=== PATIENT | male | born 1945 | race Caucasian/White ===

== ENCOUNTER 2019-07-09 20:48 | Emergency (ER) | payer OTHER ==
[~2019-07-09] VITALS: Ht 177.8 cm; Wt 63.5 kg
--- NOTE | 2019-07-09 20:48 | NUR ---
PT LETTY ALS TO ER BED 11
[2019-07-09 20:50] VITALS: BP 163/103
--- NOTE | 2019-07-09 20:50 | NUR ---
73 YO MALE BIB EMS FOR S/P FALL. PT HAS R POSTERIOR REDNESS/BUMP. DENIES LOC/VISUAL CHANGES. PT AMB WITH SHAKY GAIT. TRANSFERRED FROM EMS RDUFFIELD TO BEDSIDE RDUFFIELD WITH MAX ASSIST. GEN WEAKNESS NOTED. GURNEY LOCKED IN LOWEST POSITION. WILL UPDATE ERMD. BS-151 DENIES MED HX PT TAKES ASA 325 TID DENIES ALLERGIES
--- NOTE | 2019-07-09 21:30 | NUR ---
PT TO CT SCAN VIA [facility]
--- NOTE | 2019-07-09 21:46 | NUR ---
PT RETURNED FROM CT AT THIS TIME
[2019-07-09 23:41] VITALS: BP 153/82
--- NOTE | 2019-07-09 23:48 | NUR ---
Patient discharged with v/s stable. Written and verbal after care instructions given and explained BY DR ROBLES. Patient alert, oriented and verbalized understanding of instructions. Ambulatory with steady gait. All questions addressed prior to discharge BY DR ROBLES. ID band removed. Patient advised to follow up with PMD. Rx of NAPROSYN given. Patient educated on indication of medication including possible reaction and side effects. Opportunity to ask questions provided and answered BY DR ROBLES.
--- NOTE | 2019-07-09 23:48 | NUR ---
[facility] CALLED FOR PT
== END 2019-07-09 23:48 | disposition home or self-care (01) ==
LOC: MED 20:48
DX: S09.90XA Unspecified injury of head, initial encounter (principal); W18.39XA Other fall on same level, initial encounter; Y93.89 Activity, other specified; Y92.89 Other specified places as the place of occurrence of the external cause; Y99.8 Other external cause status
CPT/HCPCS: 70450; 99284

== ENCOUNTER 2019-09-25 11:03 | Inpatient (IN) | payer OTHER ==
[~2019-09-25] VITALS: Ht 177.8 cm; Wt 83.0 kg
--- NOTE | 2019-09-25 11:06 | NUR ---
PT BIBA TO ER BED 08
[2019-09-25 11:07] VITALS: BP 146/83
--- NOTE | 2019-09-25 11:16 | NUR ---
PATIENT BIBA FROM TRAILER DUE TO DIZZINESS. ACCORDING TO THE PT, HE FELT TIRED AND DIZZY AND RESTED ON THE FLOOR. NO INJURIES NOTED. DENIES N/V/D; PATIENT IS GCS 15, AAOX4; LUNGS CLEAR BL; HR EVEN AND REGULAR; PT DENIES ANY FEVER, CP, SOB, OR COUGH AT THIS TIME; PATIENT STATES PAIN OF 0/10 AT THIS TIME; VSS; PATIENT POSITIONED FOR COMFORT; HOB ELEVATED; BEDRAILS UP X2; BED DOWN. ER MD MADE AWARE OF PT STATUS. ALLERGIES: NONE PMH: NONE MEDS: VITAMINS
[2019-09-25 11:18] VITALS: BP 146/83
[2019-09-25] MEDS ORDERED: hydrOXYzine HCL 25 MG TAB PO ONE (11:35)
[2019-09-25] MEDS ORDERED: ONDANSETRON 4 MG/2 ML VIAL IVP ONE (11:35)
[2019-09-25] MEDS ORDERED: MECLIZINE 25 MG TAB PO ONE (11:35)
[2019-09-25] MEDS ORDERED: FAMOTIDINE 20 MG/2 ML VIAL IVP ONE (11:35)
--- NOTE | 2019-09-25 12:15 | NUR ---
XRAY AT BEDSIDE
[2019-09-25 12:22] LABS: BASOPHILS # (AUTO) 0.1 K/uL (0.00-0.22); BASOPHILS % (AUTO) 1.2 % (0.0-2.0); EOSINOPHILS # (AUTO) 0.1 K/uL (0-0.4); EOSINOPHILS % (AUTO) 0.6 % (0.0-4.0); HEMATOCRIT 42.7 % (36-52); HEMOGLOBIN 14.1 g/dL (12.0-18.0); LYMPHOCYTES # (AUTO) 0.6 K/uL (2.0-11.5); LYMPHOCYTES % (AUTO) 6.5 % (20.5-51.1); MEAN CORPUSCULAR HEMOGLOBIN 30 pg (27-31); MEAN CORPUSCULAR HGB CONC 33 g/dL (33-37); MEAN CORPUSCULAR VOLUME 91.8 fL (80-94); MONOCYTES # (AUTO) 0.5 K/uL (0.8-1.0); MONOCYTES % (AUTO) 5.8 % (1.7-9.3); NEUTROPHILS # (AUTO) 7.6 K/uL (1.8-7.7); NEUTROPHILS % (AUTO) 85.9 % (42.2-75.2); PLATELET COUNT (AUTO) 366 K/uL (140-450); RED BLOOD CELL COUNT(AUTO) 4.65 MIL/uL (4.20-6.10); RED CELL DISTRIBUTION WIDTH 13.8 % (11.6-13.7); WHITE BLOOD COUNT (AUTO) 8.9 K/uL (4.8-10.8)
[2019-09-25 12:31] LABS: ANION GAP 11.7 (8-16); CHLORIDE 101 mmol/L (98-107); CREATININE 1.3 mg/dL (0.7-1.3); GLUCOSE 327 mg/dL (74-106); POTASSIUM 4.7 mmol/L (3.5-5.1); SODIUM SERUM 138 mmol/L (136-145); UREA NITROGEN, BLOOD 22 mg/dL (7-18)
[2019-09-25 12:38] LABS: ALBUMIN 3.1 g/dL (3.4-5.0); ASPARTATE AMINOTRANSFERASE 14 U/L (15-37); MAGNESIUM 1.9 mg/dL (1.8-2.4); TOTAL BILIRUBIN 0.4 mg/dL (0.0-1.0); URIC ACID 4.7 mg/dL (2.6-7.2)
--- NOTE | 2019-09-25 12:40 | NUR ---
PATIENT WHEELED TO CT
[2019-09-25 12:58] LABS: ACETONE, SERUM NEGATIVE (NEGATIVE)
--- NOTE | 2019-09-25 13:00 | NUR ---
PT TAKEN TO MED SURG TO SHOW---FECAL INCONTINENCE ASIYA LAWTON AND BRAEDEN LAWTON WITH PT----
--- NOTE | 2019-09-25 13:09 | NUR ---
ASIYA LAWTON AND BRAEDEN LAWTON RELIEVED BY RAJI LAWTON AND LIZ HUNT
[2019-09-25] MEDS ORDERED: NACL 0.9% 2,000 ML IV SCH (13:43)
[2019-09-25] MEDS ORDERED: PIPERACILLIN/TAZOBACTAM 3.375 GM in DEXTROSE 5% 50 ML IV ONE (13:45)
[2019-09-25] MEDS ORDERED: ONDANSETRON 4 MG/2 ML VIAL IM/IVP PRN (13:45)
[2019-09-25] MEDS ORDERED: MORPHINE SULFATE 2 MG/ML SYR IVP PRN (13:45)
[2019-09-25] MEDS ORDERED: HYDROcodone/APAP 5/325 MG 1 TAB TAB PO PRN (13:45)
[2019-09-25] MEDS ORDERED: ACETAMINOPHEN 325 MG TAB PO PRN (13:45)
[2019-09-25] MEDS ORDERED: DOCUSATE SODIUM 100 MG GELCAP PO PRN (13:45)
[2019-09-25] MEDS: NACL 0.9% 1,000 ML IV SCH (13:45)
[2019-09-25] MEDS ORDERED: PIPERACILLIN/TAZOBACTAM 3.375 GM VIAL IV ONE (14:05)
[2019-09-25 14:15] LABS: BARBITURATE, URINE NEG. ng/ml (NEG <=200); BENZODIAZEPINE, URINE NEG. ng/mL (NEG <=200); CANNABINOID, URINE NEG. ng/mL (NEG <=50); COCAINE, URINE NEG. ng/mL (NEG <=300); OPIATE, URINE NEG. ng/mL (NEG <=2000); PHENCYCLIDINE SCREEN,URINE NEG. ng/mL (NEG <=25)
[2019-09-25 14:20] LABS: APPEARANCE,URINE CLOUDY (CLEAR); BILIRUBIN,URINE NEGATIVE (NEGATIVE); BLOOD, URINE NEGATIVE (NEGATIVE); COLOR,URINE YELLOW (YELLOW); LEUKOCYTE ESTERASE ,URINE NEGATIVE (NEGATIVE); NITRITE, URINE NEGATIVE (NEGATIVE); PH,URINE 6.5 (5.0-9.0); UGLUCOSE 2+ (NEGATIVE)
[2019-09-25 14:38] LABS: RBC,URINE NONE SEEN /HPF (0-5); WBC,URINE NONE SEEN /HPF (0-5)
[2019-09-25 14:48] LABS: MAGNESIUM 1.9 mg/dL (1.8-2.4); PHOSPHORUS 2.6 mg/dL (2.5-4.9); THYROID STIMULATING HORMONE 2.91 uIU/mL (0.34-3.74)
--- NOTE | 2019-09-25 14:50 | NUR ---
PT ADMITTED TO THE UNIT. PT IS AOX3, POOR HISTORIAN, GO ON TANGENTS, PT IS STABLE, OPEN WOUND ON LEFT FOOT. ROOM AIR, RUNNING NS AT 100ML/H, INTRODUCE SELF TO PT, ORIENTED PT TO THE ROOM, UPDATE THE WHITE BOARD, SAFETY MEASURES IN PLACE. CALL LIGHT WITHIN REACH.
--- NOTE | 2019-09-25 14:55 | NUR ---
Patient will be admitted to care of DR JEROME. Admited to [facility]. Will go to room 119B. Belongings list completed. Report to JERED CHIRINOS.
[2019-09-25 16:00] VITALS: BP 159/90
[2019-09-25 17:16] LABS: URIC ACID 4.7 mg/dL (2.6-7.2)
--- NOTE | 2019-09-25 17:20 | NUR ---
PT SIGNED CONSENT FOR CT ANGIO OF CHEST. WILL CONTINUE TO MONITOR. CALL LIGHT WITHIN REACH.
[2019-09-25] MEDS: PIPERACILLIN/TAZOBACTAM 3.375 GM in DEXTROSE 5% 50 ML IV SCH (17:57)
--- NOTE | 2019-09-25 18:00 | NUR ---
ADMINISTER MEDICATION, PT IS STABLE, US TECH IN ROOM. CALL LIGHT WITHIN REACH.
--- NOTE | 2019-09-25 19:20 | NUR ---
GAVE REPORT TO NIGHT NURSE FOR CONTINUITY OF CARE. PT IS STABLE, CALL LIGHT WITHIN REACH.
--- NOTE | 2019-09-25 19:21 | NUR ---
RECEIVED REPORT FROM AM SHIFT NURSE. PATIENT ALERT AND ORIENTED X3. NO APPARENT DISTRESS NOTED. WITH PIV ON LEFT AC 20G RUNNING IVF AND RIGHT AC 20G SALINE LOCKED. SCHEDULED FOR CT ANGIO AT 1999. BED ON LOW POSITION. WILL CONTINUE TO MONITOR.
[2019-09-25 20:00] VITALS: BP 155/85
--- NOTE | 2019-09-25 20:23 | NUR ---
WENT OFF OF UNIT FOR CT ANGIO. LEFT IN STABLE CONDITION.
[2019-09-25 21:07] LABS: ACETONE, SERUM NEGATIVE (NEGATIVE)
--- NOTE | 2019-09-25 21:24 | NUR ---
CAME BACK FROM CT ANGIO. IN STABLE CONDITION. WILL CONTINUE TO MONITOR.
--- NOTE | 2019-09-25 23:00 | NUR ---
NOTED IV ON LEFT AC DISLODGED. PATIENT SAID HE TOOK IT OFF. STILL WITH RIGHT AC ACCESS. INTACT AND PATIENT. WILL CONTINUE TO MONITOR.
[2019-09-26] VITALS: BP 159/95
[2019-09-26] MEDS: PIPERACILLIN/TAZOBACTAM 3.375 GM in DEXTROSE 5% 50 ML IV SCH ×3 (00:02→12:24)
--- NOTE | 2019-09-26 01:00 | NUR ---
PATIENT ASLEEP IN BED. NO APPARENT DISTRESS NOTED. VISIBLE CHEST RISE AND FALL NOTED. WILL CONTINUE TO MONITOR.
--- NOTE | 2019-09-26 03:00 | NUR ---
PATIENT ASLEEP IN BED. NO APPARENT DISTRESS NOTED. WILL CONTINUE TO MONITOR.
[2019-09-26 04:00] VITALS: BP 158/76
--- NOTE | 2019-09-26 05:00 | NUR ---
PATIENT AWAKE IN BED. NO APPARENT DISTRESS NOTED. DENIES PAIN NOR DISCOMFORT. WILL CONTINUE TO MONITOR.
[2019-09-26] MEDS ORDERED: DEXTROSE 50% 50 ML SYR IVP PRN (05:45)
[2019-09-26 05:53] LABS: BASOPHILS # (AUTO) 0.1 K/uL (0.00-0.22); BASOPHILS % (AUTO) 0.8 % (0.0-2.0); EOSINOPHILS # (AUTO) 0.2 K/uL (0-0.4); HEMATOCRIT 36.1 % (36-52); HEMOGLOBIN 11.8 g/dL (12.0-18.0); LYMPHOCYTES # (AUTO) 1.4 K/uL (2.0-11.5); LYMPHOCYTES % (AUTO) 16.9 % (20.5-51.1); MEAN CORPUSCULAR HEMOGLOBIN 30 pg (27-31); MEAN CORPUSCULAR HGB CONC 33 g/dL (33-37); MEAN CORPUSCULAR VOLUME 91.1 fL (80-94); MONOCYTES # (AUTO) 0.8 K/uL (0.8-1.0); MONOCYTES % (AUTO) 9.9 % (1.7-9.3); NEUTROPHILS # (AUTO) 5.9 K/uL (1.8-7.7); NEUTROPHILS % (AUTO) 70.4 % (42.2-75.2); PLATELET COUNT (AUTO) 354 K/uL (140-450); RED BLOOD CELL COUNT(AUTO) 3.97 MIL/uL (4.20-6.10); RED CELL DISTRIBUTION WIDTH 13.8 % (11.6-13.7); WHITE BLOOD COUNT (AUTO) 8.4 K/uL (4.8-10.8)
[2019-09-26 05:56] LABS: ANION GAP 9.6 (8-16); CARBON DIOXIDE 29.6 mmol/L (21-32); CHLORIDE 104 mmol/L (98-107); CREATININE 1.3 mg/dL (0.7-1.3); GLUCOSE 189 mg/dL (74-106); POTASSIUM 4.2 mmol/L (3.5-5.1); SODIUM SERUM 139 mmol/L (136-145); UREA NITROGEN, BLOOD 24 mg/dL (7-18)
[2019-09-26] MEDS: BLOOD GLUCOSE MONITORING 1 DEV DEV FS SCH ×4 (05:56→21:02)
[2019-09-26] MEDS: INSULIN LISPRO SLIDING SCALE 100 UNITS/ML VIAL SUBQ PRN ×3 (05:58→21:00)
[2019-09-26 06:07] LABS: T4 (THYROXINE) 5.3 ug/dL (4.5-12.0)
[2019-09-26 06:17] LABS: CHOL/HDL RATIO 5.3 (1-4.5)
--- NOTE | 2019-09-26 06:19 | NUR ---
FNS consult received on 09/25/19 for ostemyelitis. Consult reason does not meet high risk criteria per hospital policy. Patient will be seen and assessed according to the nutrition care policy. Darline Christensen MS, RDN
[2019-09-26] MEDS: NACL 0.9% 1,000 ML IV SCH ×2 (06:25→23:37)
--- NOTE | 2019-09-26 06:33 | NUR ---
PATIENT HAS BEEN SCREENED AND CATEGORIZED LOW NUTRITION RISK. PATIENT WILL BE SEEN WITHIN 7 DAYS OF ADMISSION. 10/02/19 SUDHAKAR GRAYSON MS, RDN
--- NOTE | 2019-09-26 06:59 | NUR ---
PATIENT AWAKE IN BED. NO APPARENT DISTRESS NOTED. DENIES PAIN NOR DISCOMFORT. SAFETY ENSURED. BED ON LOW POSITION. WILL CONTINUE TO MONITOR.
--- NOTE | 2019-09-26 07:20 | NUR ---
ENDORSED TO AM SHIFT NURSE FOR CONTINUITY OF CARE.
[2019-09-26] MEDS ORDERED: VANCOMYCIN PER PHARMACY MC PRN (07:25)
--- NOTE | 2019-09-26 07:25 | NUR ---
RECEIVED PT FROM SUPERVISING NURSE NURSEMAGDA, PT IS AWAKE AND LYING ON THE BED, AOX4, ON ROOM AIR, IV LINE ON THE RT AC G. 18 ON SALINE LOCK, PT HAS LEFT FOOT WOUND REINFORCED WITH A DRESSING, INTACT NO DRAN NOTED, FALL AND SAFETY PRECAUTION INITIATED, NO SIGN OF DISTRESS NOTED, PT DENIES PAIN AND NO SOB. WILL CONTINUE TO MONITOR PT.
[2019-09-26 08:00] VITALS: BP 151/85
[2019-09-26] MEDS ORDERED: VANCOMYCIN 1,250 MG in DEXTROSE 5% 250 ML IV SCH ×2 (09:00→10:00)
--- NOTE | 2019-09-26 09:59 | NUR ---
PT IS AWAKE AND LYING ON THE BED, AM MEDICATIONS WERE GIVEN, PARAMETER CHECKED, WILL MONITOR PT
[2019-09-26] MEDS ORDERED: metFORMIN 500 MG TAB PO SCH (11:25)
[2019-09-26] MEDS ORDERED: LISINOPRIL 5 MG TAB PO SCH (11:30)
[2019-09-26 12:00] VITALS: BP 123/81
--- NOTE | 2019-09-26 12:24 | NUR ---
PT IS AWAKE AND IV ZOSYN WAS GIVEN VIA PIGGYBACK, PT WAS GIVEN 2 UNITS INSULIN ON THE LEFT UA FOR BLOOD GLUCOSE OF 195. WILL MONITOR PT.
[2019-09-26 16:00] VITALS: BP 143/93
[2019-09-26] MEDS: metFORMIN 500 MG TAB PO SCH (17:25)
--- NOTE | 2019-09-26 17:25 | NUR ---
PT WAS GIVEN ORAL MEDICATION, NO INSULIN NEEDED FOR BLOOD GLUCOSE OF 143. WILL MONITOR PT.
--- NOTE | 2019-09-26 19:12 | NUR ---
ENDORSED PT TO REMELT SUGAR BOILER NURSEMAGDA FOR CONTINUITY OF CARE.
--- NOTE | 2019-09-26 19:13 | NUR ---
RECEIVED REPORT FROM AM SHIFT NURSE. PATIENT ALERT AND ORIENTED X3. NO APPARENT DISTRESS NOTED. IV ON RIGHT AC 18 Addendum: 09/26/19 at 1938 by Reji Burris RN CONTINUED: GAUGE. SAFETY PRECAUTIONS IN PLACE. BED ON LOW POSITION. BED ALARM ON. CALL LIGHT WITHIN REACH. WILL CONTINUE TO MONITOR.
[2019-09-26 20:00] VITALS: BP 148/93
[2019-09-26] MEDS: ATORVASTATIN 20 MG TAB PO SCH (20:23)
--- NOTE | 2019-09-26 21:07 | NUR ---
PATIENT AWAKE IN BED, WATCHING TV. NO APPARENT DISTRESS NOTED. DENIES PAIN NOR DISCOMFORT. BED ON LOW POSITION. BED ALARM ON. WILL CONTINUE TO MONITOR.
--- NOTE | 2019-09-26 23:05 | NUR ---
PATIENT ASLEEP IN BED. VISIBLE CHEST RISE AND FALL NOTED. NO APPARENT DISTRESS NOTED. BED ON LOW POSITION. BED ALARM ON. WILL CONTINUE TO MONITOR.
[2019-09-27] VITALS: BP 125/68
--- NOTE | 2019-09-27 01:00 | NUR ---
ROUNDS DONE. PATIENT ASLEEP IN BED. NO APPARENT DISTRESS NOTED. VISIBLE CHEST RISE AND FALL NOTED. WILL CONTINUE TO MONITOR.
--- NOTE | 2019-09-27 03:00 | NUR ---
PATIENT ASLEEP IN BED. NO APPARENT DISTRESS NOTED. VISIBLE CHEST RISE AND FALL NOTED. WILL CONTINUE TO MONITOR.
[2019-09-27 04:00] VITALS: BP 153/90
--- NOTE | 2019-09-27 05:00 | NUR ---
PATIENT IV DISLODGED. ACCORDING TO PATIENT IT GOT CAUGHT IN THE SIDE RAILS. WILL RE-INSERT. WILL CONTINUE TO MONITOR.
[2019-09-27] MEDS: INSULIN LISPRO SLIDING SCALE 100 UNITS/ML VIAL SUBQ PRN ×3 (06:24→21:11)
[2019-09-27] MEDS: BLOOD GLUCOSE MONITORING 1 DEV DEV FS SCH ×4 (06:26→21:05)
--- NOTE | 2019-09-27 06:35 | NUR ---
PATIENT AWAKE IN BED. NO APPARENT DISTRESS NOTED. BED ON LOW POSITION. WILL CONTINUE TO MONITOR.
[2019-09-27 06:47] LABS: BASOPHILS # (AUTO) 0.1 K/uL (0.00-0.22); BASOPHILS % (AUTO) 0.8 % (0.0-2.0); EOSINOPHILS # (AUTO) 0.2 K/uL (0-0.4); EOSINOPHILS % (AUTO) 1.9 % (0.0-4.0); HEMATOCRIT 38.4 % (36-52); HEMOGLOBIN 12.7 g/dL (12.0-18.0); LYMPHOCYTES # (AUTO) 1.7 K/uL (2.0-11.5); LYMPHOCYTES % (AUTO) 19.1 % (20.5-51.1); MEAN CORPUSCULAR HEMOGLOBIN 30 pg (27-31); MEAN CORPUSCULAR HGB CONC 33 g/dL (33-37); MEAN CORPUSCULAR VOLUME 90.8 fL (80-94); MONOCYTES # (AUTO) 0.7 K/uL (0.8-1.0); MONOCYTES % (AUTO) 8.4 % (1.7-9.3); NEUTROPHILS # (AUTO) 6.1 K/uL (1.8-7.7); NEUTROPHILS % (AUTO) 69.8 % (42.2-75.2); PLATELET COUNT (AUTO) 346 K/uL (140-450); RED BLOOD CELL COUNT(AUTO) 4.23 MIL/uL (4.20-6.10); RED CELL DISTRIBUTION WIDTH 13.9 % (11.6-13.7); WHITE BLOOD COUNT (AUTO) 8.8 K/uL (4.8-10.8)
[2019-09-27 07:11] LABS: ANION GAP 11.9 (8-16); CARBON DIOXIDE 29.6 mmol/L (21-32); CHLORIDE 102 mmol/L (98-107); CREATININE 1.4 mg/dL (0.7-1.3); GLUCOSE 151 mg/dL (74-106); POTASSIUM 4.5 mmol/L (3.5-5.1); SODIUM SERUM 139 mmol/L (136-145); UREA NITROGEN, BLOOD 21 mg/dL (7-18)
[2019-09-27 07:22] LABS: PHOSPHORUS 3.4 mg/dL (2.5-4.9)
--- NOTE | 2019-09-27 07:25 | NUR ---
ENDORSED TO NEXT SHIFT FOR CONTINUITY OF CARE.
--- NOTE | 2019-09-27 07:30 | NUR ---
RECEIVED PT FROM SCIENCE SPECIALIST NURSEMAGDA, PT IS AWAKE AND LYING ON THE BED, AOX4, ON ROOM AIR, IV LINE ON THE RT HAND G. 22 WITH NS AT 60ML/HR INFUSING, PT HAS LEFT FOOT WOUND REINFORCED WITH A DRESSING SOAKED WITH BETADINE, INTACT NO DRAN NOTED, FALL AND SAFETY PRECAUTION INITIATED, NO SIGN OF DISTRESS NOTED, PT DENIES PAIN AND NO SOB. WILL CONTINUE TO MONITOR PT.
[2019-09-27 08:00] VITALS: BP 153/90
[2019-09-27] MEDS: VANCOMYCIN 1,250 MG in DEXTROSE 5% 250 ML IV SCH (08:37)
--- NOTE | 2019-09-27 08:41 | NUR ---
PT WAS GIVEN HEPARIN SUBQ ROUTE NOW, PLATELET IS 346. MEDICATION TEACHING WAS GIVEN TO PT ANDF VERBALIZD UNDERSTANDING.
[2019-09-27] MEDS: metFORMIN 500 MG TAB PO SCH ×2 (08:42→16:19)
[2019-09-27] MEDS: LISINOPRIL 5 MG TAB PO SCH (08:43)
--- NOTE | 2019-09-27 08:43 | NUR ---
PT WAS GIVEN AM MEDICATIONS, ORAL AND IVPB, WILL CONTINUE TO MONITOR PT.
--- NOTE | 2019-09-27 09:19 | NUR ---
DC PLANNING: CALLED [facility] [phone] MANAGED BY [employer] SPOKE WITH SARKIS , PER SARKIS NO NEED TO TRANSFER TO ANY OTHER HOSPITAL ,[facility] IS CONTRACTED WITH MEDICARE ADVANTAGE. 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 LEFT FOOT XRAY SHOWED LEFT 3RD TOE WITH BONY DESTRUCTION CELLULITIS IS SUSPECTED , LACTIC ACID 2.3 500 ML BOLUS GIVEN , CONTINUE IV ZOSYN , DC PLAN PODIATRY CONSULTED,AND RECOMMENDED OUT PT VASCULAR SURGEON AND UP ON DISCHARGE PT WILL FOLLOW UP WITH DR BLAIR IN HER OFFICE AT [facility]. ECHO READ BY INBOUND TELEMARKETER . CM TO FOLLOW Addendum: 09/28/19 at 1556 by Faith Carbone CM DC PLANING: PATIENT HAS A DC ORDER TO GO TO SNF FOR IV ABX AND WOUND CARE . REQUEST PATIENT IF HE HAS ANY CHOICE OF SNF, PER PT WANTED TO STAY IN [facility] IF ANY AVAILABLE , FAXED TO RAMAKRISH[facility] INGRAM, [facility]. I RECEIVED A CALL FROM RACHEAL SANDERS PT INSURANCE WILL BE TRANSFERRED TO [facility] FOR OCT 03, 2019 AND THEY ARE NOT CONTRACTED WITH [facility] . Addendum: 09/28/19 at 1707 by Faith Carbone CM DC PLANNING [facility] ACCEPTED PATIENT CAN GO TO ROOM 220B AND CHARGE NURSE PLS CALL KRYSTIN [phone] ADMIN AT [facility] CAN ARR[facility]SP[facility] TO FOLLOW Addendum: 09/30/19 at 1052 by Camille Felix CM MET WITH THE PATIENT AT THE BEDSIDE TO DISCUSS DC PLANNING, HE IS ADAMANT OF THE PLAN AND JUST KEEP ON GOING IN CIRCLES. STATING THAT "I NEED TO GO BACK TO MY TRAILER TO GET MY WALLET AND MY LIBRARY, MAYBE YOU CAN CONTACT MY DAUGHTER MARILYN GALLARDO AT [phone] TO PICK ME UP AND TAKE ME TO MY TRAILER TO GET MY WALLET. SHE LIVES IN [place] AND HER PHONE NUMBER IS [phone]." CONTACTED THE PROVIDED NUMBER, ABLE TO SPEAK TO MARILYN GALLARDO. SHE CONFIRMED THAT SHE IS THE PATIENT'S DAUGHTER AND LIVES IN [place]. INFORMED HER OF THE DC PLAN. SHE STATED THAT MAYBE HER FATHER IS CONCERNED ABOUT THE RENT. SHE REQUESTED TO BE TRANSFERRED TO HER FATHER TO PERSUADE HIM OF GOING TO THE SNF. SHE ALSO STATED THAT SHE IS SICK RIGHT NOW AND WILL NOT BE ABLE TO COME DOWN TO SEE HER FATHER AND MAYBE TOMORROW SINCE SHE IS OFF. TRANSFERRED THE CALL TO THE UNIT. CM WILL FOLLOW UP. Addendum: 09/30/19 at 1111 by Camille Felix CONTACTED [facility] AT [phone], ABLE TO SPEAK TO BHAVESH Macdonald REGARDING DC PLAN. SHE STATED I NEED TO CALL BACK TOMORROW BECAUSE AUTH DEPT IS CLOSED. CONTACTED ZULAY ANDREW AT [phone], SHE STATED THEY ARE ABLE TO ACCEPT THE PATIENT BUT THEY NEED AN AUTH BEFORE THEY CAN PROCESS THE TRANSFER. Addendum: 10/01/19 at 1049 by Faith Carbone CM DC PLANNING: SEEN BY DR ABDIRAHMAN VASQUEZ PODIATRY FOR GANGRENE OF LEFT TOE. WILL BE SCHEDULE FOR SURGICAL INTERVENTION , PROCEDURE WILL TAKE PLACE EITHER TODAY OR TOMORROW. . CONTINUE FLAGYL AND ROCEPHIN AND ADDING BACTRIM . FAXED TO [facility] FOR VASCULAR SURGEON. PT IS REFUSING SNF AT THIS TIME. CM TO FOLLOW
--- NOTE | 2019-09-27 11:53 | NUR ---
PT WAS GIVEN INSULIN 4 UNITS IN THE ABDOMEN FOR THE BLOOD GLUCOSE RESULT OF 231, WILL MONITOR
[2019-09-27 12:00] VITALS: BP 163/96
--- NOTE | 2019-09-27 13:05 | NUR ---
Petrologist Note: Basic Screen: Yes High Risk DC Screen Yes Name: MARILYN GALLARDO Home Relationship: DAUGHTER Pre-Admission Living Arrangements: Other Other: [address] [place] [address] Prior ADL Independent Current Home Health Name/Tel: N/A Current DME/02 Name/Tel: N/A Current Hospice Name/Tel: N/A Current Dialysis Name/Tel: N/A Healthcare Decision Maker: Patient Advance Directive No - REFUSED Information Taught: Advance Directive Person Taught: Patient Teaching Tools: Verbal Factors Affecting Learning: None Participation Level: Refused Evaluation: Verbalizes Understanding Needs Additional Education: No Discipline: Case Mgt/Social Svcs Tentative Discharge Plan/Destination: No Needs Identified Will require assistance post discharge: No Referred to Ag Service Manager: No Tentative Discharge Plan Summary: Patient is a 74-year-old female admitted for near syncope/FTT/osteomyelitis. Patient has no reportable PMHX. Patient was admitted from home. SW met with patient at bedside to verify demographics. Patient reports no history of mental health and no history of substance abuse. Patient reported that he is independent with all ADLs and resides at [address] [place] [address]. [address] [address]. Patient reports no history of mental health and no history of substance abuse. SW provided education on advanced directive, but patient refused. Patient's tentative discharge plan is to return home. No further needs identified. Signature: ELOISE Carty Date: Sep 27, 2019 Time: 13:04
[2019-09-27 16:00] VITALS: BP 145/96
--- NOTE | 2019-09-27 16:00 | NUR ---
POTTERY DECORATION DESIGNER CAME AND DID THE DRESSING CHANGE FOR THE PT, WAS ADVISED NOT TO PUT AN MAUREEN BANDAGE TO THE LEFT FOOT ONLY KERLIX DRESSING AND TAPE IT.
[2019-09-27] MEDS: NACL 0.9% 1,000 ML IV SCH (16:18)
--- NOTE | 2019-09-27 16:23 | NUR ---
BLOOD GLUCOSE CHECK DONE 120MG/DL. OTHER DUE MEDS GIVEN EXCEPT FOR HUMALOG.
--- NOTE | 2019-09-27 19:25 | NUR ---
ENDORSED PT TO DATA ANALYST NURSE FOR CONTINUITY OF CARE.
--- NOTE | 2019-09-27 19:26 | NUR ---
RECEIVED PT FROM AM SHIFT NURSE, PT IS AWAKE AND LYING ON THE BED, AOX4, ON ROOM AIR, IV LINE ON THE RT HAND G. 22 WITH NS AT 60ML/HR INFUSING, PT HAS LEFT FOOT WOUND REINFORCED WITH A DRESSING SOAKED WITH BETADINE, INTACT NO DRAIN NOTED, FALL AND SAFETY PRECAUTION INITIATED, NO SIGN OF DISTRESS NOTED, PT DENIES PAIN AND NO SOB. WILL CONTINUE TO MONITOR PT.
[2019-09-27 20:00] VITALS: BP 161/90
[2019-09-27] MEDS: ATORVASTATIN 20 MG TAB PO SCH (21:00)
--- NOTE | 2019-09-27 21:05 | NUR ---
TAKEN BS =302, GIVEN HUMALOG 8 UNITS ORDERED
--- NOTE | 2019-09-28 01:02 | NUR ---
PT SLEEPING, PATIENT DOES WANT TO BE DISTURBED VERBALIZED
--- NOTE | 2019-09-28 05:17 | NUR ---
PT REFUSED BS CHECK AND VITAL SIGNS. DR. TABARES AT BEDSIDE EXPLAINING TO THE PT. EXPLAINED THE RISKS AND BENEFITS
[2019-09-28] MEDS: BLOOD GLUCOSE MONITORING 1 DEV DEV FS SCH ×4 (06:45→21:21)
[2019-09-28 06:46] VITALS: BP 153/86
--- NOTE | 2019-09-28 06:46 | NUR ---
PT ELAINA TO HAVE HER BP AND BLOOS=D SUGAR CHECKED AFTER EXPLAINING TO HIM AND ENCOURAGING HIM
--- NOTE | 2019-09-28 07:22 | NUR ---
PT AWAKE, ALERT O X 3 PATIENT HAS SOME SIGNS OF CONFUSION AND FORGETFULNESS. REITERATED SOME INFORMATION FOR HIM TO REMEMBER. PT ENDORSED TO NEXT SHIFT W/ STABLE CONDITION.
--- NOTE | 2019-09-28 07:24 | NUR ---
REPORT RECEIVED FROM DRAWING MACHINE OPERATOR NURSE FOR CONTINUITY OF CARE. PATIENT IS RESTING IN BED, BED IN LOW POSITION, CALL LIGHT ON AND WITHIN REACH.
[2019-09-28 08:19] LABS: BASOPHILS # (AUTO) 0.1 K/uL (0.00-0.22); BASOPHILS % (AUTO) 0.8 % (0.0-2.0); EOSINOPHILS # (AUTO) 0.2 K/uL (0-0.4); EOSINOPHILS % (AUTO) 2.6 % (0.0-4.0); HEMATOCRIT 38.7 % (36-52); HEMOGLOBIN 12.6 g/dL (12.0-18.0); LYMPHOCYTES # (AUTO) 1.3 K/uL (2.0-11.5); LYMPHOCYTES % (AUTO) 17.3 % (20.5-51.1); MEAN CORPUSCULAR HEMOGLOBIN 30 pg (27-31); MEAN CORPUSCULAR HGB CONC 33 g/dL (33-37); MEAN CORPUSCULAR VOLUME 91.3 fL (80-94); MONOCYTES # (AUTO) 0.6 K/uL (0.8-1.0); MONOCYTES % (AUTO) 8.3 % (1.7-9.3); NEUTROPHILS # (AUTO) 5.3 K/uL (1.8-7.7); PLATELET COUNT (AUTO) 319 K/uL (140-450); RED BLOOD CELL COUNT(AUTO) 4.23 MIL/uL (4.20-6.10); WHITE BLOOD COUNT (AUTO) 7.4 K/uL (4.8-10.8)
[2019-09-28] MEDS: NACL 0.9% 1,000 ML IV SCH (08:25)
[2019-09-28 08:27] LABS: ANION GAP 11.5 (8-16); CARBON DIOXIDE 27.3 mmol/L (21-32); CHLORIDE 104 mmol/L (98-107); CREATININE 1.2 mg/dL (0.7-1.3); GLUCOSE 128 mg/dL (74-106); POTASSIUM 4.8 mmol/L (3.5-5.1); SODIUM SERUM 138 mmol/L (136-145); UREA NITROGEN, BLOOD 19 mg/dL (7-18)
[2019-09-28] MEDS: metFORMIN 500 MG TAB PO SCH ×2 (08:27→17:40)
[2019-09-28] MEDS: LISINOPRIL 5 MG TAB PO SCH (08:27)
[2019-09-28 08:30] LABS: MAGNESIUM 1.9 mg/dL (1.8-2.4); PHOSPHORUS 3.3 mg/dL (2.5-4.9)
--- NOTE | 2019-09-28 10:00 | NUR ---
PATIENT IS RESTING IN BED, BREAKFAST TOLERATED WELL, VANCOMYCIN RUNNING. WILL CONTINUE TO MONITOR.
[2019-09-28] MEDS: VANCOMYCIN 1,250 MG in DEXTROSE 5% 250 ML IV SCH (10:29)
--- NOTE | 2019-09-28 11:57 | NUR ---
RESTING IN BED, NO PAIN NOTED AT THIS TIME. WILL CONTINUE TO MONITOR. BED IN LOW POSITION, CALL LIGHT ON AND WITHIN REACH.
--- NOTE | 2019-09-28 14:30 | NUR ---
PATIENT IS RESTING IN BED, LUNCH TOLERATED WELL, MEDICATIONS TOLERATED WELL, LEFT FOOT WAS INSPECTED BY SPONGE DIVER MAIL HANDLERS SUPERVISOR. DENIES PAIN AT THIS TIME. BED IN LOW POSITION, CALL LIGHT ON AND WITHIN REACH, WILL CONTINUE TO MONITOR.
[2019-09-28 16:00] VITALS: BP 147/88
--- NOTE | 2019-09-28 17:00 | NUR ---
PATIENT IS RESTING IN BED, BED IN LOW POSITION, OBSERVED CHEST RISE AND FALL. CALL LIGHT ON AND WITHIN REACH. WILL CONTINUE TO MONITOR.
[2019-09-28] MEDS ORDERED: PIPERACILLIN/TAZOBACTAM 3.375 GM in DEXTROSE 5% 50 ML IV SCH (18:00)
--- NOTE | 2019-09-28 19:25 | NUR ---
REPORT GIVEN TO ONCOMING PELLET MACHINE OPERATOR NURSE FOR CONTINUITY OF CARE
--- NOTE | 2019-09-28 19:28 | NUR ---
PT'S INFORMING ME THAT HE WANTS TO GO TO THE BANK TOMORROW. EXPLAINED THAT NO DISCHARGE ORDER YET, AND WILL HAVE THEIR ROUNDS ARABELLA. PT OFTEN FORGETFUL. PT ALSO STATED THAT HE HAS SEEN SOME WHITE HORSE IN FROM OF HIS ROOM. ORIENTED HIM TO REALITY
[2019-09-28] MEDS: INSULIN LISPRO SLIDING SCALE 100 UNITS/ML VIAL SUBQ PRN (21:23)
[2019-09-28] MEDS ORDERED: cefTRIAXone 2,000 MG VIAL ONE (21:25)
[2019-09-28] MEDS: cefTRIAXone 2,000 MG in DEXTROSE 5% 100 ML IV SCH (21:33)
[2019-09-28] MEDS: ATORVASTATIN 20 MG TAB PO SCH (21:34)
--- NOTE | 2019-09-28 23:30 | NUR ---
DR. ABREU WAS AT PT'S BEDSIDE AND ORDERED ANTIBIOTICS. WILL CARRY OUT ORDERS
[2019-09-29] VITALS: BP 122/78
--- NOTE | 2019-09-29 00:12 | NUR ---
PT SLEEPING; TAKEN VITAL SIGNS WITHIN NORMAL LIMITS. NO RESPIRATORY DISTRESS NOTED
[2019-09-29] MEDS: NACL 0.9% 1,000 ML IV SCH ×2 (02:28→18:22)
--- NOTE | 2019-09-29 05:00 | NUR ---
PT'S ANTIBIOTICS WILL BE GIVEN ORDERED BY DR. ABREU. PT NOT IN DISTRESS STILL SLEEPING BUT EASILY AROUSABLE
[2019-09-29] MEDS: metroNIDAZOLE 500 MG/NS PREMIX 100 ML IV SCH ×3 (05:33→20:24)
[2019-09-29] MEDS: BLOOD GLUCOSE MONITORING 1 DEV DEV FS SCH ×4 (05:34→21:52)
--- NOTE | 2019-09-29 06:00 | NUR ---
PT AWAKE, ALERT ORIENTED X 3 WITH SOME FORGETFULNESS; PT A FALL RISK. ENDORSED TO NEXT SHIFT NURSE FOR CONTINUITY OF CARE.
[2019-09-29 06:47] LABS: BASOPHILS # (AUTO) 0.1 K/uL (0.00-0.22); BASOPHILS % (AUTO) 0.9 % (0.0-2.0); EOSINOPHILS # (AUTO) 0.3 K/uL (0-0.4); EOSINOPHILS % (AUTO) 3.1 % (0.0-4.0); HEMATOCRIT 36.2 % (36-52); HEMOGLOBIN 11.9 g/dL (12.0-18.0); LYMPHOCYTES # (AUTO) 1.6 K/uL (2.0-11.5); MEAN CORPUSCULAR HEMOGLOBIN 30 pg (27-31); MEAN CORPUSCULAR HGB CONC 33 g/dL (33-37); MEAN CORPUSCULAR VOLUME 90.9 fL (80-94); MONOCYTES # (AUTO) 0.7 K/uL (0.8-1.0); MONOCYTES % (AUTO) 9.1 % (1.7-9.3); NEUTROPHILS # (AUTO) 5.4 K/uL (1.8-7.7); NEUTROPHILS % (AUTO) 66.9 % (42.2-75.2); PLATELET COUNT (AUTO) 318 K/uL (140-450); RED BLOOD CELL COUNT(AUTO) 3.98 MIL/uL (4.20-6.10); RED CELL DISTRIBUTION WIDTH 13.8 % (11.6-13.7); WHITE BLOOD COUNT (AUTO) 8.1 K/uL (4.8-10.8)
[2019-09-29 07:07] LABS: ANION GAP 12.9 (8-16); CARBON DIOXIDE 24.2 mmol/L (21-32); CHLORIDE 106 mmol/L (98-107); CREATININE 1.2 mg/dL (0.7-1.3); GLUCOSE 112 mg/dL (74-106); POTASSIUM 4.1 mmol/L (3.5-5.1); SODIUM SERUM 139 mmol/L (136-145); UREA NITROGEN, BLOOD 20 mg/dL (7-18)
[2019-09-29 07:09] LABS: MAGNESIUM 1.9 mg/dL (1.8-2.4); PHOSPHORUS 3.6 mg/dL (2.5-4.9)
--- NOTE | 2019-09-29 07:20 | NUR ---
RECEIVED BEDSIDE REPORT FROM NIGHTSHIFT NURSE. PT RESTING IN BED. ABLE TO MAKE NEEDS KNOWN. RESPIRATIONS EVEN AND UNLABORED WITH NO SOB OR RESPIRATORY DISTRESS. SKIN WARM AND DRY TO TOUCH. SAFETY MEASURES IN PLACE. WILL CONTINUE TO MONITOR.
[2019-09-29 08:00] VITALS: BP 150/86
--- NOTE | 2019-09-29 08:35 | NUR ---
HOURLY ROUNDING. PT ASLEEP IN BED. RESPONSIVE TO VERBAL AND TACTILE STIMULI. ABLE TO MAKE NEEDS KNOWN. RESPIRATIONS EVEN AND UNLABORED WITH NO SOB OR RESPIRATORY DISTRESS. SKIN WARM AND DRY TO TOUCH. SAFETY MEASURES IN PLACE. WILL CONTINUE TO MONITOR.
[2019-09-29] MEDS ORDERED: VANCOMYCIN 1,500 MG in NACL 0.9% 500 ML IV SCH (09:00)
--- NOTE | 2019-09-29 09:47 | NUR ---
ADMINISTERED MEDICATION PRESCRIBED PER MD ORDER. PT TOLERATED WELL. MEDICATION EDUCATION PERFORMED. PT UNDERSTANDS AND COULD TEACH BACK. SAFETY MEASURES IN PLACE. WILL CONTINUE TO MONITOR.
[2019-09-29] MEDS: LISINOPRIL 5 MG TAB PO SCH (09:49)
[2019-09-29] MEDS: metFORMIN 500 MG TAB PO SCH ×2 (09:49→18:22)
--- NOTE | 2019-09-29 11:38 | NUR ---
HOURLY ROUNDING. PT RESTING IN BED. ABLE TO MAKE NEEDS KNOWN. RESPIRATIONS EVEN AND UNLABORED WITH NO SOB OR RESPIRATORY DISTRESS. SKIN WARM AND DRY TO TOUCH. SAFETY MEASURES IN PLACE. WILL CONTINUE TO MONITOR.
--- NOTE | 2019-09-29 12:45 | NUR ---
PT EATING LUNCH IN BED. RESPIRATIONS EVEN AND UNLABORED WITH NO SOB OR RESPIRATORY DISTRESS. SKIN WARM AND DRY TO TOUCH. HEARD IV PUMP BEEPING AND FOUND THE INTACT IV CANNULA ON THE FLOOR. ASKED PT WHAT HAPPENED AND HE STATED, "I HAD TO GO TO THE BATHROOM AND THIS WAS IN THE WAY SO I PULLED THE WHOLE THING OUT." INSTRUCTED PT ON IMPORTANCE OF ASKING FOR HELP AND EDUCATED PT ON THE PURPOSE OF NOT PULLING OUT IV CANNULA. SAFETY MEASURES IN PLACE. WILL CONTINUE TO MONITOR
[2019-09-29] MEDS: INSULIN LISPRO SLIDING SCALE 100 UNITS/ML VIAL SUBQ PRN (12:47)
--- NOTE | 2019-09-29 13:51 | NUR ---
SPOKE WITH KRYSTIN FROM [facility] TEL# [phone], STATED THAT THEY DID NOT RECEIVE THE AUTHORIZATION FROM PT'S INSURANCE YET. PER KRYSTIN, THERE IS NO CM THIS WEEKEND AND THEY CAN NOT TAKE THE PT WITHOUT THE AUTH FOR SNF STAY. DR. MORALES AND JUDIT ASSIGNED MADE AWARE.
--- NOTE | 2019-09-29 13:55 | NUR ---
RECEIVED CALL FROM CHARGE NURSE KINDRA AND DR. MORALES STATING THAT [facility] DID NOT RECEIVE THE AUTHORIZATION FROM PT'S INSURANCE. PT WAS MADE AWARE. NO CONCERNS OR COMPLAINTS AT THIS TIME.
--- NOTE | 2019-09-29 14:45 | NUR ---
PT RESTING IN BED. RESPIRATIONS EVEN AND UNLABORED WITH NO SOB OR RESPIRATORY DISTRESS. SKIN WARM AND DRY TO TOUCH. NEW IV PLACED IN LEFT FA 20G. SAFETY MEASURES IN PLACE. WILL CONTINUE TO MONITOR
--- NOTE | 2019-09-29 15:58 | NUR ---
09/29/19 RD INITIAL ASSESSMENT COMPLETED PLEASE REFER TO NUTRITION ASSESSMENT UNDER CARE ACTIVITY FOR ESTIMATED NUTRITIONAL NEEDS. 1. RECOMMEND A SWALLOW EVALUATION 2. [facility] WITH TEXTURE AND FLUID CONSISTENCY SUGGESTED BY SWALLOW EVALUATION 3. EDUCATION WAS PROVIDED TO PATIENT 4. RD TO FOLLOW-UP 3-5 DAYS, MODERATE RISK BHUPINDER ALMANZA RD
[2019-09-29 16:00] VITALS: BP 134/68
--- NOTE | 2019-09-29 16:50 | NUR ---
HOURLY ROUNDING. PT RESTING IN BED AND GOING THROUGH HIS PERSONAL BELONGINGS. RESPIRATIONS EVEN AND UNLABORED WITH NO SOB OR RESPIRATORY DISTRESS. SKIN WARM AND DRY TO TOUCH. SAFETY MEASURES IN PLACE. WILL CONTINUE TO MONITOR
--- NOTE | 2019-09-29 18:45 | NUR ---
PT FINISHED EATING DINNER. ABLE TO MAKE NEEDS KNOWN. RESPIRATIONS EVEN AND UNLABORED WITH NO SOB OR RESPIRATORY DISTRESS. SKIN WARM AND DRY TO TOUCH. SAFETY MEASURES IN PLACE. WILL CONTINUE TO MONITOR
--- NOTE | 2019-09-29 19:15 | NUR ---
ENDORSED TO NIGHTSHIFT NURSE. PT RESTING IN BED. ABLE TO MAKE NEEDS KNOWN. RESPIRATIONS EVEN AND UNLABORED WITH NO SOB OR RESPIRATORY DISTRESS. SKIN WARM AND DRY TO TOUCH. SAFETY MEASURES IN PLACE. PT IS STABLE.
--- NOTE | 2019-09-29 19:16 | NUR ---
RECEIVED REPORT FROM DAY SHIFT NURSE. PT SITTING ON BED, EATING. AAOX3. DENIES PAIN OR SOB. ON ROOM AIR. 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 IV TO LEFT FA#20G, NS AT 60 ML/HR INFUSING WELL. PT'S HAS DRESSING TO LEFT FOOT, DRY AND INTACT. SAFETY PRECAUTION IN PLACE. CALL LIGHT WITHIN REACH.
[2019-09-29] MEDS: ATORVASTATIN 20 MG TAB PO SCH (20:27)
--- NOTE | 2019-09-29 21:00 | NUR ---
PT'S BLOOD SUGAR 165. PT REFUSED INSULIN HUMALOG. EDUCATED PT ABOUT RISK AND BENEFITS, PT VERBALIZED UNDERSTANDING.
--- NOTE | 2019-09-29 21:30 | NUR ---
PT ACCIDENTALLY PULLED OUT IV. NO BLEEDING NOTED. PT WAS REFUSING IV INSERTION BUT DR. GUERIN SPOKE WITH PT AND AGREED TO HAVE ANOTHER IV LINE.
[2019-09-29] MEDS: cefTRIAXone 2,000 MG in DEXTROSE 5% 100 ML IV SCH (21:48)
--- NOTE | 2019-09-29 22:00 | NUR ---
INSERTED IV LINE TO LEFT FA #22G. GOOD FLUSH AND BLOOD RETURN. PT TOLERATED PROCEDURE WELL.
--- NOTE | 2019-09-29 22:30 | NUR ---
PT REFUSED TO BE CLEANED, REFUSED LINEN CHANGE AND CLEAN THE ROOM.
--- NOTE | 2019-09-30 | NUR ---
PT REFUSED V/S CHECK AND DRESSING CHANGE TO LEFT FOOT. PER PT, LEAVE HIM ALONE AND HE WANTS TO SLEEP.
--- NOTE | 2019-09-30 02:45 | NUR ---
NH SLEEPING BUT EASILY AROUSABLE. RESP EVEN AND UNLABORED. IVF INFUSING WELL. FALL PRECAUTION IN PLACE. CALL LIGHT WITHIN REACH.
[2019-09-30] MEDS: metroNIDAZOLE 500 MG/NS PREMIX 100 ML IV SCH ×3 (04:24→20:54)
--- NOTE | 2019-09-30 05:00 | NUR ---
PT SLEEPING/ NO S/S OF PAIN OR DISCOMFORT. NO S/S OF RESP DISTRESS. CALL LIGHT WITHIN REACH.
--- NOTE | 2019-09-30 06:15 | NUR ---
PT REFUSED BLOOD SUGAR CHECK. EDUCATED PT ABOUT RISK AND BENEFITS, PT VERBALIZED UNDERSTANDING.
[2019-09-30] MEDS: BLOOD GLUCOSE MONITORING 1 DEV DEV FS SCH ×4 (06:16→20:43)
--- NOTE | 2019-09-30 07:05 | NUR ---
ENDORSED PT TO DAY SHIFT NURSE. PT IN STABLE CONDITION.
--- NOTE | 2019-09-30 07:10 | NUR ---
ENDORSED PT TO DAY SHIFT NURSE. PT IN STABLE CONDITION.
--- NOTE | 2019-09-30 07:15 | NUR ---
RECEIVED REPORT FROM UPPER LEATHER SORTER NURSE FOR CONTINUITY OF CARE. PATIENT IS CURRENTLY STABLE AT THIS TIME. BED IN LOW POSITION.
[2019-09-30 08:00] VITALS: BP 158/85
[2019-09-30] MEDS: metFORMIN 500 MG TAB PO SCH ×2 (09:08→18:05)
[2019-09-30] MEDS: LISINOPRIL 5 MG TAB PO SCH (09:08)
--- NOTE | 2019-09-30 10:00 | NUR ---
PATIENT IS RESTING IN BED, BLOOD SUGAR IS WNL. URINAL EMPTIED. BREAKFAST TOLERATED WELL. REFUSES TO GO TO SNF IN [place]. WILL CONTINUE TO MONITOR.
[2019-09-30 10:01] LABS: BASOPHILS # (AUTO) 0.1 K/uL (0.00-0.22); BASOPHILS % (AUTO) 0.8 % (0.0-2.0); EOSINOPHILS # (AUTO) 0.3 K/uL (0-0.4); HEMATOCRIT 37.6 % (36-52); HEMOGLOBIN 12.5 g/dL (12.0-18.0); LYMPHOCYTES # (AUTO) 1.6 K/uL (2.0-11.5); MEAN CORPUSCULAR HEMOGLOBIN 30 pg (27-31); MEAN CORPUSCULAR HGB CONC 33 g/dL (33-37); MEAN CORPUSCULAR VOLUME 91.1 fL (80-94); MONOCYTES # (AUTO) 0.7 K/uL (0.8-1.0); MONOCYTES % (AUTO) 7.4 % (1.7-9.3); NEUTROPHILS # (AUTO) 6.6 K/uL (1.8-7.7); NEUTROPHILS % (AUTO) 71.8 % (42.2-75.2); PLATELET COUNT (AUTO) 320 K/uL (140-450); RED BLOOD CELL COUNT(AUTO) 4.12 MIL/uL (4.20-6.10); WHITE BLOOD COUNT (AUTO) 9.2 K/uL (4.8-10.8)
[2019-09-30 10:11] LABS: ANION GAP 11.5 (8-16); CARBON DIOXIDE 26.3 mmol/L (21-32); CHLORIDE 103 mmol/L (98-107); CREATININE 1.1 mg/dL (0.7-1.3); GLUCOSE 172 mg/dL (74-106); POTASSIUM 3.8 mmol/L (3.5-5.1); SODIUM SERUM 137 mmol/L (136-145); UREA NITROGEN, BLOOD 19 mg/dL (7-18)
[2019-09-30 10:17] LABS: MAGNESIUM 1.9 mg/dL (1.8-2.4)
[2019-09-30] MEDS: NACL 0.9% 1,000 ML IV SCH ×2 (10:25→21:01)
--- NOTE | 2019-09-30 12:30 | NUR ---
PATIENT IS RESTING IN BED, WILL CONTINUE TO MONITOR.
--- NOTE | 2019-09-30 15:00 | NUR ---
PATIENT IS RESTING IN BED WILL CONTINUE TO MONITOR.
[2019-09-30 16:00] VITALS: BP 146/79
--- NOTE | 2019-09-30 17:30 | NUR ---
PATIENT IS RESTING IN BED, WILL CONTINUE TO MONITOR.
--- NOTE | 2019-09-30 19:30 | NUR ---
ENDORSED TO VISUAL DISPLAY ASSOCIATE NURSE FOR CONTINUITY OF CARE.
--- NOTE | 2019-09-30 19:31 | NUR ---
RECEIVED REPORT FROM AM SHIFT NURSE. PT SITTING ON BED, AAOX3. PT WITH SOME PERIODS OF CONFUSION. DENIES PAIN OR SOB. ON ROOM AIR. 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 IV TO LEFT FA#20G, NS AT 60 ML/HR INFUSING WELL. PT USING URINAL. PT'S HAS DRESSING TO LEFT FOOT,W/ DRESSING, UNABLE TO ASSESS WOUND. SEE NEXT NOTES. SAFETY AND FALL RISK PRECAUTION IN PLACE. CALL LIGHT WITHIN REACH.
[2019-09-30] MEDS: cefTRIAXone 2,000 MG in DEXTROSE 5% 100 ML IV SCH (20:20)
[2019-09-30] MEDS: INSULIN LISPRO SLIDING SCALE 100 UNITS/ML VIAL SUBQ PRN (20:46)
[2019-09-30] MEDS: ATORVASTATIN 20 MG TAB PO SCH (20:55)
--- NOTE | 2019-09-30 21:45 | NUR ---
PT AWAKE, ALERT BUT ASKED HIM IF I COULD DRESS HIS WOUND AND TO ASSESS IT. PT SAID HE IS FINE AND THAT HE CAN TAKE CARE OF HIMSELF. ALSO INFORMED HIM THAT IF I COULD TAKE A PICTURE OF HIS WOUND, TUESDAY-. BUT PT REFUSED. EXPLAINED THE RISKS AND BENEFITS. INFORMED CHARGE NURSE. WILL INFORM DR. CONTRERAS.
--- NOTE | 2019-10-01 00:15 | NUR ---
PT SLEEPING, DOES NOT WANT TO BE DISTURBED HE SAID :"GO" VITAL SIGNS WAS NOT TAKEN. EXPLAINED TO THE PT THE RISKS AND BENEFITS.WILL INFORM DR. CONTRERAS.
--- NOTE | 2019-10-01 03:00 | NUR ---
PT SLEEPING, DOES NOT WANT TO BE DISTURBED,NO COMPLAINTS AT THIS TIME
--- NOTE | 2019-10-01 03:01 | NUR ---
DR. CONTRERAS AWARE THAT RFUSED VITAL SIGNS AT MIDNIGHT AND THAT HE DOES NOT WANT PICTURE OF HIS AFFECTED FOOT TAKEN.
[2019-10-01 04:00] VITALS: BP 127/76
--- NOTE | 2019-10-01 04:00 | NUR ---
PT REFUSED LABS. RAIN WAS AT BEDSIDE AND EXPLAINED TO THE PT. RISK AND BENEFITS
[2019-10-01] MEDS: metroNIDAZOLE 500 MG/NS PREMIX 100 ML IV SCH ×2 (05:18→13:42)
--- NOTE | 2019-10-01 07:25 | NUR ---
RECEIVED REPORT FROM DISK SANDER NURSE FOR CONTINUITY OF CARE, PATIENT IS RESTING IN BED, FOUL ODOR COMING FROM LEFT FOOT OSTEOMYELITIS, PATIENT REFUSED LAB BLOOD DRAW. WILL CONTINUE TO MONITOR.
--- NOTE | 2019-10-01 07:26 | NUR ---
PT AWAKE, ALERT ORIENTED X 3; W/ SOME CONFUSION; BEDREST FALL RISK; PT REFUSED BLOOD DRAW ENDORSED. NO RESPIRATORY DISTRESS; STILL NEEDS DRESSING ON HIS FOOT, PT REFUSED. TO AM SHIFT NURSE. DR. KIRBY
[2019-10-01] MEDS: BLOOD GLUCOSE MONITORING 1 DEV DEV FS SCH ×4 (07:38→21:00)
[2019-10-01] MEDS: metFORMIN 500 MG TAB PO SCH ×2 (08:05→18:37)
[2019-10-01] MEDS: LISINOPRIL 5 MG TAB PO SCH (08:05)
--- NOTE | 2019-10-01 09:00 | NUR ---
P.T. NOTES PATIENT REFUSED TO PARTICIPATE WITH Jaleesa'S PLAN OF CARE AFTER SEVERAL ATTEMPTS WERE MADE. PLAN: WE'LL FOLLOW UP AGAIN TOMORROW IF HE REMAINS IN THIS HOSPITAL.
--- NOTE | 2019-10-01 10:00 | NUR ---
PATIENT IS RESTING IN BED, BREAKFAST TOLERATED WELL, MEDICATIONS TOLERATED WELL, FOUL ODOR COMING FROM LEFT FOOT. PEDIATRIC ACUTE CARE UNIT NURSE DR. GARY CONSULTING PATIENT. WILL CONTINUE TO MONITOR.
--- NOTE | 2019-10-01 12:30 | NUR ---
PATIENT WAS ORDERED FOR CT W CONTRAST. SURGERY WAS CANCELLED. PATIENT RESTING IN BED. WILL CONTINUE TO MONITOR.
--- NOTE | 2019-10-01 15:00 | NUR ---
PATIENT RESTING IN BED, NO SIGNS OF DISTRESS, TOLERATING MEDICATIONS WELL. WILL CONTINUE TO MONITOR.
[2019-10-01 16:00] VITALS: BP 126/79
--- NOTE | 2019-10-01 17:30 | NUR ---
PATIENT IS RESTING IN BED, CALL LIGHT ON AND WITHIN REACH, BED IN LOW POSITION, WILL CONTINUE TO MONITOR.
--- NOTE | 2019-10-01 19:29 | NUR ---
PATIENT IS RESTING IN BED, NO SIGNS OF DISTRESS NOTED, PATIENT PULLED OUT RIGHT AC 20 GAUGE IV. WILL CONTINUE TO MONITOR. MINIMAL BLEEDING, BANDAGE PLACED.
[2019-10-01] MEDS: NACL 0.9% 1,000 ML IV SCH (19:45)
--- NOTE | 2019-10-01 19:57 | NUR ---
* ST NOTE * Pt seen at bedside. Pt alert, cooperative and engaged throughout session, reporting no c/o pain at this time. Bedside dysphagia and oral mechanism exams completed. See evaluation report for further details. Pt tolerating 3/3 alternating PO trials of regular solid saltine crackers as well as 4/4 alternating PO trials of thin liquid apple juice via a straw, all w/o s/s of aspiration or choking. Pt observed to have minimal residue in oral cavity after PO intake. Pt however clearing oral cavity w/utilization of alternating solids & liquids safe swallow compensatory strategy. Pt reporting difficulty masticating meats as well. Pt education completed re: aspiration precautions and safe swallow compensatory strategies pt could utilize to aid w/swallow function, w/pt verbalizing understanding and agreement w/clinician's recommendations. It is thus recommended pt's PO diet consistency be modified to mechanical soft-chopped textures w/thin liquids for all meals, w/aspiration precautions in place. No further ST follow up recommended at this time. Pt and caregiver/Nsg Galdino education completed re: results of evaluation; benefits of abiding by aspiration precautions and recommended PO diet consistency; and prognosis for improvement; with pt and caregiver/Nsg Galdino verbalizing understanding and agreement w/clinician's recommendations. Recommend: - PO DIET CONSISTENCY OF MECHANICAL SOFT-CHOPPED TEXTURES W/THIN LIQUIDS for all meals - WHOLE PILL MEDICATION ADMINISTRATION - MAINTAIN ASPIRATION PRECAUTIONS DURING PT'S PO INTAKE - Pt can self-feed after setup of tray - CUE/REMIND PT TO SIT UP AT 80-90 DEGREE ANGLE DURING PO INTAKE; EAT/DRINK SLOWLY; ALTERNATE BTWN SOLIDS & LIQUIDS; AND TO TAKE SMALL BITES/SIPS No further ST follow up recommended at this time. NOMS Level 2 Time In/Out 11:15 - 11:45
[2019-10-01] MEDS: ATORVASTATIN 20 MG TAB PO SCH ×2 (21:00→21:45)
[2019-10-01] MEDS: cefTRIAXone 2,000 MG in DEXTROSE 5% 100 ML IV SCH (21:45)
--- NOTE | 2019-10-01 23:00 | NUR ---
RECEIVED PT. PT SITTING ON BED, AAOX3. DENIES PAIN OR SOB. ON ROOM AIR. 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 IV TO LEFT FA#20G, NS AT 60 ML/HR INFUSING WELL. PT USING URINAL. PT'S HAS DRESSING TO LEFT FOOT,W/ DRESSING, SAFETY AND FALL RISK PRECAUTION IN PLACE. CALL LIGHT WITHIN REACH.
[2019-10-02] VITALS: BP 131/76
--- NOTE | 2019-10-02 01:00 | NUR ---
PT REFUSED FOR RN TO ASSESS WOUND.
[2019-10-02] MEDS: NACL 0.9% 1,000 ML IV SCH (01:48)
--- NOTE | 2019-10-02 02:00 | NUR ---
PT SLEEPING IN BED. NO ACUTE DISTRESS NOTED.
[2019-10-02] MEDS: metroNIDAZOLE 500 MG/NS PREMIX 100 ML IV SCH (04:25)
--- NOTE | 2019-10-02 04:27 | NUR ---
GIVEN FLAGYL MD ORDERED. PT TOLERATED WELL.
[2019-10-02] MEDS: BLOOD GLUCOSE MONITORING 1 DEV DEV FS SCH (05:57)
--- NOTE | 2019-10-02 05:58 | NUR ---
BS CHECKED, 122 NO INSULIN COVERAGE NEEDED.
--- NOTE | 2019-10-02 06:46 | NUR ---
SEE PT'S NAME ON BIG BOARD, REPORTED TO DR. MARSHALL AND ASKING OBTAINED CONSENT ORDER. DR. MARSHALL STATED, MOST LIKELY, PT WILL HAVE NO SURGERY TODAY D/T PT REFUSED CT SCAN.
--- NOTE | 2019-10-02 07:10 | NUR ---
RECEIVE REPORT FROM NIGHT NURSE. PT ASLEEP, PT STABLE, IV RUNNING NS AT 60 ML/H.
[2019-10-02] MEDS ORDERED: BACITRACIN 50000 UNITS/1 VIAL ONE (07:41)
[2019-10-02] MEDS ORDERED: BUPIVACAINE-MPF 0.25% 30 ML VIAL INJ ONE (07:42)
[2019-10-02] MEDS ORDERED: LIDOCAINE 1% 500 MG/50 ML VIAL ONE (07:42)
--- NOTE | 2019-10-02 07:45 | NUR ---
P.T. NOTES HOLD P.T. SERVICES DUE TO PATIENT IS FOR I AND D PROCEDURE THIS MORNING PER HIS NURSE. PLAN: WE'LL FOLLOW UP AGAIN IF REFERRED AGAIN BY Blanca. TO [facility].
[2019-10-02 08:00] VITALS: BP 110/60
[2019-10-02] MEDS: metFORMIN 500 MG TAB PO SCH (08:00)
--- NOTE | 2019-10-02 08:00 | NUR ---
ADMINISTER ORDERED MEDICATION, PT TOLERATED WELL.
[2019-10-02 09:26] LABS: BASOPHILS # (AUTO) 0.1 K/uL (0.00-0.22); BASOPHILS % (AUTO) 0.9 % (0.0-2.0); EOSINOPHILS # (AUTO) 0.2 K/uL (0-0.4); EOSINOPHILS % (AUTO) 2.7 % (0.0-4.0); HEMATOCRIT 37.1 % (36-52); HEMOGLOBIN 12.1 g/dL (12.0-18.0); LYMPHOCYTES # (AUTO) 1.6 K/uL (2.0-11.5); LYMPHOCYTES % (AUTO) 17.5 % (20.5-51.1); MEAN CORPUSCULAR HEMOGLOBIN 30 pg (27-31); MEAN CORPUSCULAR HGB CONC 33 g/dL (33-37); MEAN CORPUSCULAR VOLUME 91.5 fL (80-94); MONOCYTES # (AUTO) 0.8 K/uL (0.8-1.0); MONOCYTES % (AUTO) 8.6 % (1.7-9.3); NEUTROPHILS # (AUTO) 6.3 K/uL (1.8-7.7); NEUTROPHILS % (AUTO) 70.3 % (42.2-75.2); PLATELET COUNT (AUTO) 309 K/uL (140-450); RED BLOOD CELL COUNT(AUTO) 4.06 MIL/uL (4.20-6.10); RED CELL DISTRIBUTION WIDTH 13.8 % (11.6-13.7); WHITE BLOOD COUNT (AUTO) 8.9 K/uL (4.8-10.8)
--- NOTE | 2019-10-02 09:30 | NUR ---
PT REFUSED TO SIGN CONSENT FOR SURGERY, PT STATES HE NEEDS TO LEAVE FOR HOME SO HE CAN PAY HIS RENT AND NEEDS TO GO TO BANK.
[2019-10-02 09:38] LABS: ANION GAP 14.3 (8-16); CARBON DIOXIDE 26.8 mmol/L (21-32); CHLORIDE 105 mmol/L (98-107); CREATININE 1.2 mg/dL (0.7-1.3); GLUCOSE 124 mg/dL (74-106); POTASSIUM 4.1 mmol/L (3.5-5.1); SODIUM SERUM 142 mmol/L (136-145); UREA NITROGEN, BLOOD 16 mg/dL (7-18)
[2019-10-02 09:43] LABS: MAGNESIUM 1.9 mg/dL (1.8-2.4); PHOSPHORUS 3.2 mg/dL (2.5-4.9)
--- NOTE | 2019-10-02 12:14 | NUR ---
PT PULLED OUT IV. IV INTACT. NO BLOOD LEAKING OUT OF SITE, PUT DRESSING AND PRESSURE ON SITE. PUT TAPE OVER DRESSING. PT STATES HE IS LEAVING THE HOSPITAL.
--- NOTE | 2019-10-02 13:15 | NUR ---
PT ELOPED FROM THE HOSPITAL.
== END 2019-10-02 13:20 | disposition left against medical advice (07) | DRG 623 ==
LOC: MED 11:03 → MTU 13:51
PROVIDERS: ADMIT General Practice; ATTEND General Practice
PROC: 0JBR0ZZ Excision of Left Foot Subcutaneous Tissue and Fascia, Open Approach (ICD-10-PCS; principal; 2019-10-01)
DX: E11.69 Type 2 diabetes mellitus with other specified complication (principal); M86.172 Other acute osteomyelitis, left ankle and foot; E44.0 Moderate protein-calorie malnutrition; A02.9 Salmonella infection, unspecified; E11.52 Type 2 diabetes mellitus with diabetic peripheral angiopathy with gangrene; M86.9 Osteomyelitis, unspecified; E11.00 Type 2 diabetes mellitus with hyperosmolarity without nonketotic hyperglycemic-hyperosmolar coma (NKHHC); L03.032 Cellulitis of left toe; G90.9 Disorder of the autonomic nervous system, unspecified; F17.210 Nicotine dependence, cigarettes, uncomplicated; L97.529 Non-pressure chronic ulcer of other part of left foot with unspecified severity; I10 Essential (primary) hypertension; E78.5 Hyperlipidemia, unspecified; Z53.29 Procedure and treatment not carried out because of patient's decision for other reasons; Z68.26 Body mass index [BMI] 26.0-26.9, adult
CPT/HCPCS: 36415; 70450; 71045; 71275; 73630; 80048; 80053; 80202; 80305; 81001; 82009; 82140; 82550; 82948; 83036; 83605; 83735; 83880; 84100; 84436; 84443; 84484; 84550; 85025; 85379; 85610; 85730; 86140; 87040; 87070; 87075; 87081; 87086; 87186; 87205; 92610; 93005; 93880; 93925; 93970; 96365; 96375; 97116; 97161-GP; 97530; 99285; G0482; J0696; J1644; J2001; J2405; J2543; J3370; J3490; J7030; J7060; J8597; Q0092; Q9967

== ENCOUNTER 2019-10-22 17:41 | Emergency (ER) | payer OTHER ==
[~2019-10-22] VITALS: Ht 175.3 cm; Wt 79.8 kg
[2019-10-22 17:41] VITALS: BP 143/91
--- NOTE | 2019-10-22 17:41 | NUR ---
PT LETTY BLS TO ER BED 07
--- NOTE | 2019-10-22 17:52 | NUR ---
74 Y/O M BIBA FROM HOME. PER PT RESIDES IN [facility]ILER HOME. C/C FALL. PER PT RIGHT KNEE GAVE OUT AND PT FELL. DENIES ANY LOC OR HITTING HEAD. PT NKA. HX DM. RX ASA, DOES NOT RECALL RX FOR DM. DENIES N/V/D. SIDE RAIL X1. PT A/OX4. PUPILS PERRLA.
--- NOTE | 2019-10-22 18:00 | NUR ---
XRAY AT BEDSIDE
[2019-10-22 20:13] VITALS: BP 143/91
--- NOTE | 2019-10-22 20:13 | NUR ---
Patient discharged with v/s stable. Written and verbal after care instructions given and explained. Patient verbalized understanding. Ambulatory with steady gait. All questions addressed prior to discharge. Advised to follow up with PMD.
== END 2019-10-22 20:13 | disposition home or self-care (01) ==
LOC: MED 17:41
DX: M25.571 Pain in right ankle and joints of right foot (principal); W19.XXXA Unspecified fall, initial encounter; Y93.89 Activity, other specified; Y92.89 Other specified places as the place of occurrence of the external cause; Y99.8 Other external cause status; E11.9 Type 2 diabetes mellitus without complications
CPT/HCPCS: 73562; 82948; 99283; Q0092

== ENCOUNTER 2020-05-07 22:22 | Emergency (ER) | payer MEDICARE, OTHER ==
[~2020-05-07] VITALS: Ht 177.8 cm; Wt 79.4 kg
--- NOTE | 2020-05-07 22:22 | NUR ---
74 year old male patient presents to emergency departmen via BLS run with complaints of nosebleed that is actively bleeding from both nares x 1 hour. states they were doing yard work when all of a sudden, their nose bled nonstop. Per EMS, measured approximately 200-300cc of blood drained into basin. no other s/sx reported by pt or observed. denies headache/blurry vision. denies n/v/d. ERMD made aware of pt status. awaiting MSE. pmhx:htn nka
--- NOTE | 2020-05-07 22:22 | NUR ---
PT LETTY BLS. TAKEN TO BED 6
[2020-05-07 22:24] VITALS: BP 164/93
--- NOTE | 2020-05-07 22:24 | NUR ---
Dr. Zaragoza examining patient.
[2020-05-07] MEDS ORDERED: TRANEXAMIC ACID 1,000 MG/10 ML VIAL MC ONE (22:25)
[2020-05-07] MEDS ORDERED: PHENYLEPHRINE 1% 15 ML BTL NS ONE ×2 (22:25→22:27)
--- NOTE | 2020-05-07 22:25 | NUR ---
PT BIBA FOR NOSE BLEED PT AMBULATED TO ROOM 6
[2020-05-07] MEDS ORDERED: TRANEXAMIC ACID 1,000 MG/10 ML VIAL ONE (22:27)
== END 2020-05-07 23:38 | disposition home or self-care (01) ==
LOC: MED 22:22
DX: R04.0 Epistaxis (principal); I10 Essential (primary) hypertension; E11.9 Type 2 diabetes mellitus without complications
CPT/HCPCS: 99283; J3490